=== PATIENT | female | born 1980 | race Native Hawaiian/Other Pacific Islander ===

== ENCOUNTER 2017-08-13 09:29 | Emergency (ER) | payer OTHER ==
--- NOTE | 2017-08-13 10:01 | C.PDOC ---
History Of Present Illness 37 YEAR OLD FEMALE PRESENTS TO THE ED SP FALL 4 DAYS AGO CO WORSENING L UPPER BACK PAIN. ACCID SLIPPED DOWN STEPS STRUCK L UPPER BACK. PT INITIALLY MINOR PAIN FIRST 2 DAYS NOW INCREASING, WORSE W NECK TURNING OR SHOULDER MOVEMENT. NO RELIEF W NSAIDS. NO OTHER ASSOC SX. DENIES HO CHRONIC NECK OR BACK PAIN. EXAM MOD DIST NONTOXIC HEENT ATRAUM NECK NO CSPINE TEND NO PARAVERTEBRAL TEND +TORTICOLLIS LIMITED L ROTATION BACK +L TRAPEZIUS SWELL W SPASM, LOCAL TEND REPRODUC PAIN. NO SPINAL TEND NEURO INTACT SKIN INTACT - HPI Time Seen by Provider: 08/13/17 09:51 Chief Complaint (Nursing): Back Pain History Per: Patient History/Exam Limitations: no limitations Onset/Duration Of Symptoms: Days (4) Injury Occurred (Timing): Just Before Arrival Additional History Per: Patient Past Medical History Reviewed: Historical Data, Nursing Documentation, Vital Signs Vital Signs: Last Vital Signs Temp 97.8 F 08/13/17 11:20 Pulse 72 08/13/17 11:20 Resp 16 08/13/17 11:20 BP 110/76 08/13/17 11:20 Pulse Ox 99 08/13/17 11:20 - Medical History PMH: No Chronic Diseases Surgical History: No Surg Hx Family History: States: Unknown Family Hx - Social History Hx Alcohol Use: Yes Hx Substance Use: No - Immunization History Hx Tetanus Toxoid Vaccination: No Hx Influenza Vaccination: No Hx Pneumococcal Vaccination: No Review Of Systems Musculoskeletal: Positive for: Back Pain Physical Exam - Physical Exam Appears: Other (MOD DIST NONTOXIC) Skin: Normal Color, Warm, Dry Head: Atraumatic, Normacephalic Eye(s): bilateral: Normal Inspection Ear(s): Bilateral: Normal Nose: Normal, No Discharge Oral Mucosa: Moist Throat: Normal, No Erythema, No Exudate Neck: Supple, Other (NO CSPINE TEND NO PARAVERTEBRAL TEND +TORTICOLLIS LIMITED L ROTATION) Back: Other Extremity: Normal ROM, Capillary Refill (LESS THAN 2 SECONDS ) Neurological/Psych: Oriented x3, Normal Speech, Normal Cognition Gait: Steady ED Course And Treatment O2 Sat by Pulse Oximetry: 98 (ON RA) Pulse Ox Interpretation: Normal Reevaluation Time: 11:07 Reassessment Condition: Improved Disposition Counseled Patient/Family Regarding: Diagnosis, Need For Followup, Rx Given - Disposition Referrals: [facility] [Outside] [facility] [Outside] Disposition: HOME/ ROUTINE Disposition Time: 11:07 Condition: IMPROVED Prescriptions: Acetaminophen/Codeine [Tylenol/Codeine 300 MG/30 MG] 1 tab PO Q6H #8 tab diaZEpam [Valium] 2 mg PO TID PRN #15 tab PRN Reason: Muscle Spasm Ibuprofen [Motrin] 600 mg PO Q6 #30 tab Lidocaine 5% [Lidoderm] 1 ea TD PRN PRN #10 patch PRN Reason: Pain, Moderate (4-7) Instructions: Muscle Spasm (ED) Forms: [employer] ([place]), Work Excuse - Clinical Impression Clinical Impression: Torticollis, Sprain of upper back - Scribe Statement The provider has reviewed the documentation as recorded by the Scribe (ROSALES) Provider Attestation: All medical record entries made by the Scribe were at my direction and personally dictated by me. I have reviewed the chart and agree that the record accurately reflects my personal performance of the history, physical exam, medical decision making, and the department course for this patient. I have also personally directed, reviewed, and agree with the discharge instructions and disposition.
[2017-08-13] MEDS ORDERED: Lidocaine 5% Patch TD STA (10:03)
[2017-08-13] MEDS ORDERED: Morphine 4 MG/ML VIAL ONE (10:12)
[2017-08-13] MEDS ORDERED: Lidocaine 5% Patch TD ONE (10:12)
[2017-08-13 11:22] VITALS: BP 110/76; PULSE 72; RESP 16; TEMP 97.8
[2017-08-13 23:45] VITALS: O2SAT 98
== END 2017-08-13 11:22 | disposition home or self-care (01) ==
LOC: C.ER 09:29
DX: S23.3XXA Sprain of ligaments of thoracic spine, initial encounter (principal); W10.9XXA Fall (on) (from) unspecified stairs and steps, initial encounter; M43.6 Torticollis
CPT/HCPCS: 96372; 99284; J1885; J2270